=== PATIENT | female | born 1945 | race Caucasian/White ===

== ENCOUNTER 2016-11-20 05:15 | Emergency (ER) | payer MEDICARE, MEDICAID ==
[2016-11-20] MEDS ORDERED: Sodium Chloride 0.9% 1,000 ML IV ONE (05:27)
[2016-11-20] MEDS ORDERED: HYDROmorphone 2 MG/ML SDV IVPUSH ONE (05:27)
[2016-11-20] MEDS ORDERED: Ondansetron 4 MG/2 ML SDV IVPUSH ONE (05:27)
[2016-11-20 06:28] VITALS: BP 141/68
[2016-11-20] MEDS ORDERED: HYDROmorphone 2 MG/ML SDV IVPUSH PRN (06:29)
--- NOTE | 2016-11-20 06:29 | ER ---
DATE SEEN: 11/20/2016 CHIEF COMPLAINT: Abdominal pain. HISTORY OF PRESENT ILLNESS: This is a 71-year-old female, who is complaining of abdominal pain on the right upper quadrant and right middle back area. Pain started last night. Associated nausea but no vomiting. 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 Pain in the right abdomen and back area gets worse with movement, sharp and severe. PAST MEDICAL HISTORY: Depression. ALLERGIES: No known allergies. REVIEW OF SYSTEMS: No urinary symptoms. PHYSICAL EXAMINATION: VITAL SIGNS: Blood pressure is 137/69, pulse is normal 87. ABDOMEN: Soft, with tenderness in right upper quadrant and right rib cage area in the midclavicular line, right below the subcostal margin. MENTAL STATUS: Alert. SKIN: Mildly dry mucous membranes. LABS: Initial white cell count is normal. CT and MRI reports were reviewed that were recently done on 11/18/2016. Blastic metastatic disease suggested in the thoracic spine. Cholelithiasis was noted. Could not exclude cholecystitis. FINAL IMPRESSION: 1. Abdominal pain. 2. Metastatic cancer. PLAN: My plan is to give her 1 L of normal saline, some Dilaudid and Zofran. Obtain a lipase, CMP, AND an ultrasound was ordered of the gallbladder and a chest x-ray. My colleague will take over care. TIME SEEN: 0530 hours. /[id number] ACACIA/CAROLYN
[2016-11-20] MEDS ORDERED: Sodium Chloride 0.9% 1,000 ML IV SCH (06:30)
--- NOTE | 2016-11-20 11:35 | CR ---
INDICATION: Right upper quadrant pain. CHEST: AP upright portable view of the chest 11/20/2016 was compared with 04/04 and 03/29/2012, revealing relatively poor inspiration. No free air is noted under the hemidiaphragm leaves. No consolidating pneumonia or effusion was seen. The heart appeared normal in size and shape. The aorta is tortuous with minimal calcification in the arch. IMPRESSION: Fairly stable appearance of the chest. No acute process. MTDD
--- NOTE | 2016-11-20 11:44 | US ---
INDICATION: Abdominal pain / right upper quadrant pain. RIGHT UPPER QUADRANT/GALLBLADDER ULTRASOUND: Multiple ultrasonic images of the right upper quadrant revealed the gallbladder to measure 10.9 x 3.9 x 4.4 cm. A negative ultrasonic Glasgow sign is noted. Multiple calculi are present in the gallbladder, the largest measuring approximately 26 mm. Gallbladder wall did not appear to be thickened. However, there is some low echogenicity abnormality in the adjacent liver, which could represent inflammatory process and, with the size of the gallbladder , the possibility of cholecystitis is difficult to exclude. The common bile duct was normal in caliber, measuring 4.1 mm. The right kidney had an appearance suggesting some mild thinning of the renal cortex. The pyelocaliceal system is slightly prominent, as on the previous CT of 11/18/2016. The echogenicity of the liver appears to be slightly prominent, suggesting the possibility of minimal fatty infiltration of the liver. The pancreas, as visualized partly, appeared normal with the tail not ideally visualized. IMPRESSION: Enlarged gallbladder with calculi, sludge, and some minimal decreased echogenicity in the adjacent liver. Although a negative ultrasonic Glasgow sign is present, it is difficult to entirely exclude acute cholecystitis. Nuclear medicine hepatobiliary imaging may be helpful for further evaluation. Report faxed to Dr. Ugarte 11/20/2016 at 1145 hours. [facility]
--- NOTE | 2016-11-21 05:44 | ER ---
DATE SEEN: 11/20/2016 HISTORY: The patient has problems with constipation. She has done well with taking milk of magnesia 2 large doses within 12 hours. However, she had a very large bowel movement, did not have bowel movement for 4-5 days. The latter was secondary to her analgesics. In the future, she may consider using milk of magnesia on a daily basis tablespoon 1 b.i.d. or use MiraLAX 1 scoop daily, drink 2 quarts of liquid a day. If this not satisfactory, consider using sorbitol 70% 1 tablespoon daily or b.i.d. and if this does not work consider lubiprostone. No prescriptions given for those medications as she seems to be stable and her constipation has resolved with her recent intervention with milk of magnesia. She is aware that she use magnesium citrate and buy that over-the- counter. /[id number] CATRACHITA/CAROLYN
--- NOTE | 2016-11-24 10:58 | ER ---
DATE SEEN: 11/20/2016 TIME SEEN: The patient was seen at 0700 hours this morning. CHIEF COMPLAINT: Right axillary region chest discomfort, pain in the legs and lower back, mild chest congestion 1 week with constipation of 1 week duration, bowel movement last night, chronic pain secondary to previous diagnosis of metastatic disease to her lungs, breasts, chest, thoracic vertebra, and ribs. The patient has been seen by Radha Burroughs, Medical Oncologist [facility], and scheduled for bone biopsy, thoracic vertebra, Wednesday11/24/2016 at [facility]. She has been seen and worked up for cancer. The primary site indeterminate, most likely is breast. Recent CT of the chest and abdomen and MRI demonstrates lymphadenopathy in mediastinum with large anterior precarinal nodes 13 mm, enlarged nodes in the axilla bilaterally with prominent nodes left 19 mm, also nodular 12 mm density, left inferior breast suggesting breast cancer, multiple blastic lesions noted in thoracic spine without the liver, retroperitoneal bowel masses. She is status post cholecystectomy, documented cholelithiasis without cholecystitis. Conclusion of the CAT scan studies that were performed on 11/18/2016, cholelithiasis status post appendectomy, atherosclerotic vascular disease, extensive blastic metastatic disease, axial skeleton, probable left breast neoplastic disease, no evidence for liver involvement presently. As of yesterday, she noted increased difficulty breathing in right chest greater than left lower chest, anterior chest discomfort. She has also experienced dyspnea on exertion and has been walking slow. She denies recent weight loss, but she has extensive anorexia and had difficulty eating. Currently medications are fentanyl 25 mcg/hour every 72 hours and hydrocodone for breakthrough pain. At present, this is not holding her pain. The pain is increased. At 2230 yesterday evening, she noted piercing, stabbing right chest wall, right axillary discomfort, 6/10 in intensity. At approximately 0730 hours this morning was 2/10 in intensity. MEDICATIONS: 1. Fentanyl patch 25 mcg every 72 hours. 2. Zofran p.r.n. 3. Multivitamins. 4. Glucosamine. 5. Voltaren. 6. Ascorbic acid. 7. Vitamin C. 8. Hydrocodone. MEDICAL HISTORY: Significant for 30-cuae-haxb smoking. PAST SURGICAL HISTORY: Appendectomy and . ALLERGIES: None. Medications noted. REVIEW OF SYSTEMS: HEENT: Denies headaches or compromise of vision. She has fair dentition. No recent dental pain. CARDIORESPIRATORY: Denies chest pain, but she had shortness of breath. See above. Cough minimally productive. No hemoptysis. GI: No diarrhea, constipation, blood in the stool, black tarry stool, change of bowels, vomiting, but she has experienced anorexia. No history of GERD or jaundice or hepatitis. : One , 4, para 3-1-0-3. SOCIAL HISTORY: The patient is . Hcwylr-[id number]-jecaq of smoking. Denies alcohol or illicit drugs. She is attended by her significant other presently and/or friend. It is difficult to be sure what the role is, but he is very attentive to her needs. PHYSICAL EXAMINATION: VITAL SIGNS: Blood pressure 137/69, heart rate 87, respirations 16, oxygen saturation 95% on room air. 75 kilos. BMI 24.3 kilos/m2, height 1.73 m. GENERAL: Alert woman, who looks older than her age. She has moderate crows feet/skin folds on her face, some thinning of subcutaneous tissue. No scleral icterus. She infrequently smiles, looks somewhat strained. She still has mild discomfort and feels her pain is approximately 2/10 presently. HEENT: PERRLA intact. Pharynx without abnormality. No thyromegaly. No cervical adenopathy. Dr. Ugarte has seen the patient and he has started an IV antibiotic. LUNGS: Right posterior base rales noted. No wheezes. No rhonchi. HEART: S1, S2. No irregular rate and rhythm. Chest wall marked pain T6 through T11 ribs and anterior axillary line to posterior axillary line (axillary region right side greater than left side). No sternochondral discomfort. ABDOMEN: Nontender. No guarding, rebound, or distention. Bowel sounds present. No hernia demonstrated. No inguinal adenopathy. BREASTS: Not performed. EXTREMITIES: Lower extremities, no pedal edema. Mild discomfort. No vascular or linear structures are tender. Popliteal and lower extremities negative. NEURO: Deep tendon reflexes 1+ upper active, hypoactive knee jerks, ankle jerks. Straight leg raise positive at 40 degrees, right slightly more than left. No dysesthesia of lower extremities, absent reflexes, knee jerks, and ankle jerks. T12, L1-L5 spinous process, paraspinal muscle discomfort, mild to moderate. No sensory deficit in the lower extremities. X-RAYS: Chest x-ray, no infiltrate noted. No cardiomegaly. No cephalization. LABORATORY FINDINGS: Normal complete metabolic panel, except for slight transaminasemia, AST 36, ALT is slightly elevated at 46. Otherwise, remainder of automated chemistry is normal. CBC is normal with a hemoglobin of 14, white count 8800, PMNs 76, lymphocytes 16, monos 6, platelets 246,000. ASSESSMENT: The patient's right upper quadrant pain is secondary to splinting caused by right rib metastasis #6 through #12. Review of previous CAT scan demonstrated extensive increased bone density in thoracic lumbar spine. The patient's metastasis to the spine probably secondary to breast mass documented on previous reviewed CAT scan lesions, left inferior breast nodularity noted. Also axillary nodes bilaterally, large anterior carinal node in mediastinum and multiple blastic lesions seen in the thoracic and lumbar spine. The rib lesions probably are the source of patient's pain (cluneal nerves T8 through T12 with significant involvement of the nerves to the anterior chest wall, also intercostal nerve irritation secondary to metastasis to the ribs, right side greater than left side). DIAGNOSES: 1. The patient's pain is not controlled by fentanyl patch. Needs further analgesic. 2. Anorexia, extensive. 3. Status post appendectomy, . 4. Cholelithiasis, no evidence for cholecystitis. Ultrasound of the gallbladder ordered by Dr. Ugarte is negative. 5. Amylase pending. Lipase pending, sent out. Rule out pancreatic cancer. 6. Chronic obstructive pulmonary disease - [id number] smoker. 7. Social circumstances: Minimal support systems, she is , but her significant other is present supporting her. PLAN: 1. The patient will be following up with her oncologist on Wednesday next week and for biopsy of bone and/or lung nodes. 2. Meantime, the patient will use fentanyl patches and take two patches if she needs 25 mcg every 72 hours to diminish the pain. For breakthrough pain, if this is not satisfactory, she can use hydrocodone 2 tablets every 4 to 6 hours p.r.n. pain. I did not write a prescription for these as she has at home. The alternative analgesia could be to increase her hydrocodone for breakthrough pain and take only 1 fentanyl patch. 3. She may need to have appetite stimulant - Megace and/or other medication. 4. She will need support system. 5. The patient is aware of her cancer. Etiology and source of the cancer at this point is indeterminate. 6. Continue to drink fluids. 7. No evidence for bowel obstruction. 8. Most of her pain is related to bone-related lesions. 9. She may be a candidate for focal radiation for the bone involvement, spine and ribs. /[id number] CATRACHITA/CAROLYN
== END 2016-11-20 09:30 | disposition home or self-care (01) ==
LOC: FB.ED 05:15
DX: R10.11 Right upper quadrant pain (principal); C79.9 Secondary malignant neoplasm of unspecified site; F32.9 Major depressive disorder, single episode, unspecified
CPT/HCPCS: 36415; 71010; 76705; 80053; 81001; 82150; 83690; 85025; 87086; 96360; 96361; 99284; J1170; J2405; J7040; 99283

== ENCOUNTER 2016-12-01 10:07 | Emergency (ER) | payer MEDICARE, MEDICAID ==
[2016-12-01 10:27] VITALS: BP 117/71
[2016-12-01] MEDS ORDERED: Sodium Chloride 0.9% 1,000 ML IV ONE (10:31)
[2016-12-01] MEDS ORDERED: HYDROmorphone 2 MG/ML SDV IVPUSH ONE ×2 (10:33→11:46)
[2016-12-01] MEDS ORDERED: Ondansetron 4 MG/2 ML SDV IVPUSH ONE (10:33)
[2016-12-01] MEDS ORDERED: Iopamidol 755 Mg/ML 100 ML Bottle IV ONE (11:22)
--- NOTE | 2016-12-01 12:23 | EDM.PDOC ---
ED HPI GI/ABDOMINAL - General Chief Complaint: Abdominal Pain Stated Complaint: STOMACH PAIN WEAKNESS Time Seen by Provider: 12/01/16 10:21 Source: Reports: Patient History Limitations: Reports: No limitations - History of Present Illness INITIAL COMMENTS - FREE TEXT/NARRATIVE: Patient is a 71 year old woman who was diagnosed 2 weeks ago with metastatic cancer to the spine. The primary source is not completely determined but the biopsy from the bone is most likely breast cancer as the primary but it is not for sure. She has 2 Fentanyl patches on and she also takes [place]. All of the pain meds are still not making her pain go completely away. The pain meds are causing nausea and also constipating her which is worsening her abdominal discomfort. She does have cholelithiasis and this am at times her pain was worse in the RUQ. No fever or chills and no Urinary symptoms at this time. She is becoming very weak and is having palliative radiation treatments that the family has been told are not curative. 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(s) (Fentanyl, [place]umbull, Miralax and Sen[place]ot) - Related Data Allergies/ADRs: Allergies Allergy/AdvReac Type Severity Reaction Status Date / Time No Known Allergies Allergy Verified 12/01/16 11:21 Home Meds: Home Meds Ascorbic Acid [Vitamin C] 250 mg PO DAILY 09/12/13 [History] Multivitamin [Multivitamins] 1 each PO DAILY 09/12/13 [History] Wgblrave-[id number]-Ysrl 149-Hyal [Glucosamine Chondroitin Complx] 1 each PO DAILY 01/12/14 [History] Ondansetron [Zofran] 4 mg PO Q6HR PRN 11/20/16 [History] fentaNYL [Duragesic] 25 mcg TOP ASDIRECTED 11/20/16 [History] HYDROmorphone HCl [Dilaudid] 2 mg PO Q4HR PRN 12/01/16 [History] Hydrocodone/Acetaminophen [Hydrocodon-Acetaminophen 5-325] 1 each PO Q4HR PRN [History] Magnesium Citrate [Citrate of Magnesia] 296 ml PO DAILY PRN 12/01/16 [History] Past Medical History HEENT History: Reports: Other (see below) Other HEENT History: wears glasses Cardiovascular History: Reports: None CLUB ATTENDANT History: Reports: Prolapsed uterus Oncologic (Cancer) History: Reports: Lymphoma - Past Surgical History GI Surgical History: Reports: Appendectomy Musculoskeletal Surgical History: Reports: Carpal tunnel, Other (see below) Other Musculoskeletal Surgeries/Procedures:: right femur broke in 2003, has zoltan placed Social & Family History - Tobacco Use Smoking Status *Q: Never Smoker Years of Tobacco use: 50 Packs/Tins Daily: 0.5 Second Hand Smoke Exposure: No - Caffeine Use Caffeine Use: Reports: Coffee - Alcohol Use Days Per Week of Alcohol Use: 3 Number of Drinks Per Day: 2 Total Drinks Per Week: 6 - Recreational Drug Use Recreational Drug Use: No ED ROS GENERAL - Review of Systems Review Of Systems: See Below Constitutional: Reports: malaise, weakness, fatigue, decreased appetite HEENT: Reports: No symptoms Respiratory: Reports: No Symptoms Cardiovascular: Reports: No symptoms GI/Abdominal: Reports: Other (As per HPI) : Reports: no symptoms Musculoskeletal: Reports: back pain Skin: Reports: no symptoms Neurological: Reports: No Symptoms Psychiatric: Reports: No symptoms ED EXAM, GI/ABD - Physical Exam Exam: See Below Exam Limited By: No limitations General Appearance: alert, severe distress Eyes: bilateral: normal appearance, EOMI Ears: normal external exam, normal canal, hearing grossly normal, normal TMs Nose: normal inspection, normal mucosa, no blood Throat/Mouth: Normal inspection, Normal lips, Normal teeth, Normal gums, Normal oropharynx, Normal voice, No airway compromise Head: atraumatic, normocephalic Neck: normal inspection, supple, non-tender, full range of motion Respiratory/Chest: no respiratory distress, lungs clear, normal breath sounds, no accessory muscle use, chest non-tender Cardiovascular: normal peripheral pulses, regular rate, rhythm, no edema, no gallop, no JVD, no murmur, no rub GI/Abdominal: no organomegaly, hypoactive bowel sounds, tenderness, guarding ( RUQ and LUQ), Glasgow's sign (Female) Exam: Deferred Back Exam: other (Spine tenderness with movement) Extremities: normal inspection, normal range of motion, non-tender, normal capillary refill, no pedal edema Neurological: alert, oriented, CN II-XII intact, normal cognition, normal gait ( Uses a cane to walk.), normal reflexes, no motor/sensory deficits Psychiatric: normal affect, normal mood Skin Exam: Warm, Dry, Intact, Normal color, No rash Lymphatic: no adenopathy Comments: CT of abdomen with IV contrast shows new compression in L5 vertebra and stable cholelithiasis with remainder of abdominal CT negative per radiology. Course - Vital Signs Text/Narrative:: Patient was given an liter of Normal Saline and IV pain medication along with Zofran IV for good pain control. She was discharged to be able to go to her radiation oncology appointment up in [place]. When she left she was much more comfortable but the pain was not completely gone. Last Recorded V/S: Last Vital Signs Temp 36.4 C 12/01/16 10:15 Pulse 96 12/01/16 10:15 Resp 20 12/01/16 10:15 BP 117/71 12/01/16 10:15 Pulse Ox 100 12/01/16 10:15 - Orders/Labs/Meds Labs: Laboratory Tests 12/01/16 12/01/16 12/01/16 Range/Units 10:50 10:50 11:00 WBC 5.2 (4.5-12.0) X10-3/uL RBC 4.72 (3.23-5.20) x10(6)uL Hgb 14.1 (11.5-15.5) g/dL Hct 42.8 (30.0-51.3) % MCV 90.7 (80-96) fL MCH 29.8 (27.7-33.6) pg MCHC 32.9 (32.2-35.4) g/dL RDW 11.7 (11.5-15.5) % Plt Count 346 (125-369) X10(3)uL MPV 7.7 (7.4-10.4) fL Add Manual Diff Yes Neutrophils % (Manual) 83 H (46-82) % Band Neutrophils % 1 (0-6) % Lymphocytes % (Manual) 13 (13-37) % Monocytes % (Manual) 3 L (4-12) % Sodium 141 (135-145) mmol/L Potassium 4.0 (3.5-5.3) mmol/L Chloride 103 (100-110) mmol/L Carbon Dioxide 29 (23-29) mmol/L BUN 20 (8-23) mg/dL Creatinine 0.9 (0.6-1.3) mg/dL Est Cr Clr Drug Dosing TNP Estimated GFR (MDRD) > 60 (>60) BUN/Creatinine Ratio 22.2 H (9-20) Glucose 95 (80-116) mg/dL Calcium 9.4 (8.6-10.2) mg/dL Total Bilirubin 0.6 (0.1-1.3) mg/dL AST 21 D (5-27) IU/L ALT 16 D (14-26) IU/L Alkaline Phosphatase 77 (56-112) IU/L Total Protein 7.9 (6.0-8.0) g/dL Albumin 4.3 (3.2-4.6) g/dL Globulin 3.6 g/dL Albumin/Globulin Ratio 1.2 Urine Color Yellow (YELLOW) Urine Appearance Slightly cloudy (CLEAR) Urine pH 7.0 H (5.0-6.5) Ur Specific [place] 1.010 (1.010-1.025) Urine Protein Negative (NEGATIVE) mg/dL Urine Glucose (UA) Normal (NEGATIVE) mg/dL Urine Ketones Negative (NEGATIVE) mg/dL Urine Occult Blood Negative (NEGATIVE) Urine Nitrite Negative (NEGATIVE) Urine Bilirubin Negative (NEGATIVE) Urine Urobilinogen Normal (NEGATIVE) mg/dL Ur Leukocyte Esterase Negative (NEGATIVE) Urine WBC 0-5 (0) Ur Squamous Epith Cells Few H (NS,R,O) Urine Bacteria Moderate H (NS) Meds: Medications Discontinued Medications Generic Name Dose Route Start Last Admin Trade Name Freq PRN Reason Stop Dose Admin Hydromorphone HCl 1 mg 12/01/16 10:33 12/01/16 11:00 Dilaudid IVPUSH 12/01/16 10:34 1 mg ONETIME ONE Administration Hydromorphone HCl 1 mg 12/01/16 11:46 12/01/16 11:50 Dilaudid IVPUSH 12/01/16 11:47 1 mg ONETIME ONE Administration Sodium Chloride 1,000 mls @ 999 mls/hr 12/01/16 10:31 12/01/16 10:50 Normal Saline IV 12/01/16 11:31 999 mls/hr .BOLUS ONE Administration Iopamidol 100 ml 12/01/16 11:22 12/01/16 11:35 Isovue-370 (76%) IV 12/01/16 11:23 100 ml . 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
--- NOTE | 2016-12-01 12:29 | CT ---
INDICATION: Abdominal and back pain, history of metastatic CA to spine. CT ABDOMEN AND PELVIS WITH CONTRAST: Spiral 2.5-mm axial sections were obtained through the abdomen and pelvis with oral and IV contrast (100 mL Isovue -370 at 2 mL per second), with sagittal and coronal reconstructions, 12/01/2016 , and compared with 11/18/2016. Total Exam DLP = 825.08 mGy-cm. The lower lung hobson and pleural spaces visualized showed no evidence of an acute process with some emphysematous changes. There is again noted evidence of cholelithiasis with slightly distended appearing gallbladder of questionable significance. No liver abnormality was identified. The spleen appeared within normal limits. What appears to be a splenule is again noted lateral to the spleen. The pancreas also appeared unchanged with no definite focal mass or significant abnormality in general. The appendix is not visualized, compatible with history of its removal. No evidence of bowel obstruction was seen. The urinary bladder was normal in appearance. Descending and sigmoid diverticulosis is noted without evidence of diverticulitis. Calcifications are again noted in the arteries. No definite obstructive uropathy was seen with relative prominence of the proximal right ureter and pyelocaliceal system again noted and likely incidental rather than obstructive. Blastic metastatic disease scattered about the axial skeleton is again noted appearing for the most part similar to the previous examination. There does appear to be increased caudal endplate compression at L5 compared with the previous CT scan. Similar compression superior endplate of L2 again noted. No definite change in the blastic metastatic disease process is seen, but not expected in this short an interval between examinations. IMPRESSION: 1. Extensive blastic metastatic disease process stable. 2. Compression fractures appear increased at L5, stable otherwise in the lumbar spine. 3. Post appendectomy. 4. Cholelithiasis. 5. Minimal cystic changes in the kidneys, most prominent upper pole left kidney. 6. Slightly prominent renal collecting system on the right compared with the left. However, a definite obstructive process is not identified and the appearance may be incidental. CT PELVIS: Examination of the pelvis was obtained by CT, as noted above, and revealed no obstructive uropathy. [facility]
== END 2016-12-01 12:15 | disposition home or self-care (01) ==
LOC: FB.ED 10:07
DX: K80.10 Calculus of gallbladder with chronic cholecystitis without obstruction (principal); C79.49 Secondary malignant neoplasm of other parts of nervous system; C80.1 Malignant (primary) neoplasm, unspecified; K59.03 Drug induced constipation; Z79.899 Other long term (current) drug therapy; Z90.49 Acquired absence of other specified parts of digestive tract; Z98.890 Other specified postprocedural states
CPT/HCPCS: 36415; 74177; 80053; 81001; 85025; 96361; 96374; 96375; 96376; 99284; J1170; J2405; J7040; Q9967

== ENCOUNTER 2016-12-10 17:35 | Emergency (ER) | payer MEDICARE, MEDICAID ==
[2016-12-10] MEDS ORDERED: LORazepam 1 MG Tab PO ONE (17:54)
[2016-12-10] MEDS ORDERED: LORazepam 0.5 MG Tab PO ONE ×2 (18:10→18:46)
--- NOTE | 2016-12-10 18:12 | EDM.PDOC ---
ED HPI GENERAL MEDICAL PROBLEM - General Chief Complaint: Behavioral/Psych Stated Complaint: WEAKNESS Time Seen by Provider: 12/10/16 17:55 Source of Information: Reports: Patient, Old records History Limitations: Reports: No Limitations - History of Present Illness INITIAL COMMENTS - FREE TEXT/NARRATIVE: 71 yo female took her first dose of Paxil about 4 pm today prescribed for anxiety. She stated that after taking it she felt like she might pass out. Came right here to the ER. No rash. May have been mildly SOB. No chest pain. Says BP not usually a problem. Onset: today Onset Date: 12/10/16 Onset Time: 16:30 Duration: Minutes:, Improving Location: Reports: generalized Severity: moderate Improves with: Reports: Other (time) Worsens with: Reports: None Context: Reports: Other (Has metastatic colon CA with anxiety) Associated Symptoms: Reports: shortness of breath (mild), syncope (felt like she might pass out?) Treatments [employer]: Reports: Other (see below) (None) Lower Back Pain Score (Numeric/FACES): 6 - Related Data Allergies Allergy/AdvReac Type Severity Reaction Status Date / Time No Known Allergies Allergy Verified 12/10/16 18:01 Home Meds: Home Meds Ascorbic Acid [Vitamin C] 250 mg PO DAILY 09/12/13 [History] Multivitamin [Multivitamins] 1 each PO DAILY 09/12/13 [History] Qczevrrq-[id number]-Rfsr 149-Hyal [Glucosamine Chondroitin Complx] 1 each PO DAILY 01/12/14 [History] Ondansetron [Zofran] 4 mg PO Q6HR PRN 11/20/16 [History] fentaNYL [Duragesic] 25 mcg TOP ASDIRECTED 11/20/16 [History] HYDROmorphone HCl [Dilaudid] 2 mg PO Q4HR PRN 12/01/16 [History] Hydrocodone/Acetaminophen [Hydrocodon-Acetaminophen 5-325] 1 each PO Q4HR PRN [History] Magnesium Citrate [Citrate of Magnesia] 296 ml PO DAILY PRN 12/01/16 [History] Past Medical History HEENT History: Reports: Other (see below) Other HEENT History: wears glasses Cardiovascular History: Reports: None DINING HOST History: Reports: Prolapsed uterus Oncologic (Cancer) History: Reports: Lymphoma - Past Surgical History GI Surgical History: Reports: Appendectomy Musculoskeletal Surgical History: Reports: Carpal tunnel, Other (see below) Other Musculoskeletal Surgeries/Procedures:: right femur broke in 2003, has zoltan placed Social & Family History - Tobacco Use Smoking Status *Q: Never Smoker Years of Tobacco use: 50 Packs/Tins Daily: 0.5 Second Hand Smoke Exposure: No - Caffeine Use Caffeine Use: Reports: Coffee - Alcohol Use Days Per Week of Alcohol Use: 3 Number of Drinks Per Day: 2 Total Drinks Per Week: 6 - Recreational Drug Use Recreational Drug Use: No ED ROS GENERAL - Review of Systems Review Of Systems: See Below Constitutional: Reports: No Symptoms HEENT: Reports: No Symptoms Respiratory: Reports: Shortness of Breath (mild) Cardiovascular: Reports: No Symptoms, Lightheadedness, Syncope (near syncope?). Denies: Palpitations Endocrine: Reports: No Symptoms GI/Abdominal: Reports: No Symptoms : Reports: No Symptoms Musculoskeletal: Reports: No Symptoms Skin: Reports: No Symptoms Neurological: Reports: Syncope (felt like she might pass out?). Denies: Seizure , Tremors, Trouble Speaking Psychiatric: Reports: Anxiety ED EXAM, BEHAVIORAL HEALTH - Physical Exam Exam: See Below Exam Limited By: No Limitations General Appearance: Alert, WD/WN, No Apparent Distress Eye Exam: Bilateral Eye: Conjunctival Injection, EOMI, Normal Fundi, Normal Inspection Ears: Normal External Exam, Normal Canal, Hearing Grossly Normal Nose: Normal Inspection, Normal Mucosa, No Blood Throat/Mouth: Normal Inspection, Normal Lips, Normal Oropharynx, Normal Voice, No Airway Compromise Head: Atraumatic, Normocephalic Neck: Normal Inspection, Supple, Non-Tender Respiratory/Chest: No Respiratory Distress, Lungs Clear, Normal Breath Sounds, No Accessory Muscle Use Cardiovascular: Regular Rate, Rhythm, No Edema GI/Abdominal: Normal Bowel Sounds, Soft, Non-Tender, No Distention Back Exam: Normal Inspection Extremities: Normal Inspection, Normal Range of Motion, Non-Tender, No Pedal Edema Neurological: Alert, Normal Mood/Affect, CN II-XII Intact, Normal Cognition, No Motor/Sensory Deficits Psychiatric: Alert, Normal Cognition, Oriented, Other (anxious) Skin Exam: Warm, Dry, Intact, Normal color, No rash COURSE, BEHAVIORAL HEALTH COMP - Course Vital Signs: Last Vital Signs Temp 36.5 C 05/11/17 18:26 Pulse 88 12/10/16 18:26 Resp 14 12/10/16 18:26 BP 182/90 H 12/10/16 18:26 Pulse Ox 100 12/10/16 18:26 Ativan 0.5 mg po-feeling better Orders, Labs, Meds: Medications Discontinued Medications Generic Name Dose Route Start Last Admin Trade Name Yue PRN Reason Stop Dose Admin Lorazepam 1 mg 12/10/16 17:54 12/10/16 18:15 Ativan PO 12/10/16 17:55 Not Given ONETIME ONE Lorazepam 0.5 mg 12/10/16 18:10 12/10/16 18:16 Ativan PO 12/10/16 18:11 0.5 mg ONETIME ONE Administration Departure - Departure Time of Disposition: 18:45 Disposition: Home, Self-Care 01 Condition: good Clinical Impression: Anxiety HTN (hypertension) Qualifiers: Hypertension type: unspecified secondary hypertension Qualified Code(s): I15.9 - Secondary hypertension, unspecified; I15 - Secondary hypertension - Discharge Information
[2016-12-10 19:12] VITALS: BP 178/84
== END 2016-12-10 19:01 | disposition home or self-care (01) ==
LOC: FB.ED 17:35
DX: F41.9 Anxiety disorder, unspecified (principal); I15.9 Secondary hypertension, unspecified; Z79.899 Other long term (current) drug therapy; Z90.49 Acquired absence of other specified parts of digestive tract
CPT/HCPCS: 99283; A9270

== ENCOUNTER 2016-12-12 19:49 | Emergency (ER) | payer MEDICARE, MEDICAID ==
[2016-12-12] MEDS ORDERED: Ketorolac 60 MG/2 ML SDV IM ONE (20:11)
[2016-12-12 21:18] VITALS: BP 172/84
--- NOTE | 2016-12-13 01:12 | ER ---
DATE SEEN: 12/12/2016 CHIEF COMPLAINT: Fall. HISTORY OF PRESENT ILLNESS: This is a 71-year-old female who fell on the left hip while at [employer] after trivial tripping. 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 She comes with severe pain, inability to bear weight. ALLERGIES: No known allergies. PAST MEDICAL HISTORY: Hypertension, anxiety, constipation. CURRENT MEDICATIONS: Please see the nurse's notes. PHYSICAL EXAM: VITAL SIGNS: Initial blood pressure 189/95, temperature 98.9, pulse 99. Left hip shortened. Lower left lower extremity, tender in the trochanteric bursal area. Decreased range of motion. Normal peripheral pulses. Left hip x-rays confirmed a surgical neck fracture of the left hip. IMPRESSION: Left hip fracture. PLAN: Ketorolac 30 mg IM. I spoke with Orthopedics at [facility] and we will send the patient by ambulance. TIME SEEN: 2030 hours. /[id number] ACACIA/CAROLYN
--- NOTE | 2016-12-14 14:54 | CR ---
INDICATION: Fall. LEFT HIP WITH PELVIS: Frontal view of the pelvis with 3 images of the left hip , 2 lateral, revealed slightly comminuted subcapital femoral neck fracture with lateral offset of the distal fracture fragment of 2 cm and lateral angulation at the fracture site. (Lateral offset appears to be variable depending upon the patients position.) Anterior offset of the distal fracture fragment is also noted of 1.5 cm, with some anterior angulation at the fracture site also. Degenerative changes are noted at the hip joints of mild degree, with joint spaces fairly well preserved. Degenerative changes are also noted at the sacroiliac joints. Hip pinning is noted on the right which appears to be intact. IMPRESSION: Subcapital femoral neck fracture comminuted on the left with deformity. MTDD
== END 2016-12-12 21:30 ==
LOC: EEVIPCON 19:49 → FB.ED 19:49
DX: S72.012A Unspecified intracapsular fracture of left femur, initial encounter for closed fracture (principal); I10 Essential (primary) hypertension; W01.0XXA Fall on same level from slipping, tripping and stumbling without subsequent striking against object, initial encounter; Y92.830 Public park as the place of occurrence of the external cause
CPT/HCPCS: 73502; 96372; 99283; J1885